=== PATIENT | male | born 1955 | race Caucasian/White ===

== ENCOUNTER 2019-11-18 07:05 | Day surgery (SDC) | payer OTHER ==
[~2019-11-18] VITALS: Ht 188 cm; Wt 123.0 kg
[2019-11-18] MEDS ORDERED: ELIQUIS 5MG PO (07:51)
[2019-11-18] MEDS ORDERED: SYNTHROID0.1 MG/TAB PO (07:51)
[2019-11-18] MEDS ORDERED: LOPRESSOR 550 MG/TAB PO (07:58)
[2019-11-18 08:04] VITALS: BP 124/83; PULSE 89; TEMP 98
[2019-11-18 08:10] LABS: HEMATOCRIT 46.9 % (42.0-52.0); HEMOGLOBIN 15.9 g/dl (13.5-18.0); MEAN CELL VOLUME 98 fl (80.0-100.0); MEAN CORPUSCULAR HEMOGLOBIN 33 pg (27.0-31.0); MEAN CORPUSCULAR HGB CONC 34 g/dl (33.0-37.0); MEAN PLATELET VOLUME 9.3 fl (7.4-10.4); PLATELET COUNT 150 K/mm3 (130-400)
[2019-11-18 08:19] LABS: CALCIUM 9.2 mg/dL (8.4-10.2); CREATININE, serum 0.83 (0.66-1.25); POTASSIUM 4.4 mmol/L (3.4-5.0)
[2019-11-18 08:34] LABS: INR 1.2 (0.8-3.0); PROTHROMBIN TIME 13.9 SECONDS (9.7-12.8)
[2019-11-18 08:37] LABS: PARTIAL THROMBOPLASTIN TIME 37.5 SECONDS (26.0-37.0)
[2019-11-18] MEDS ORDERED: MULTAQ400 MG PO (08:46)
[2019-11-18 09:09] VITALS: BP 94/48; PULSE 54
--- NOTE | 2019-11-18 09:10 | NUR ---
report from Bobbi Thomson.Patient awake and alert, at bedside.
[2019-11-18 09:15] VITALS: BP 93/57; PULSE 52
[2019-11-18 09:30] VITALS: BP 101/69; PULSE 52
[2019-11-18 09:45] VITALS: BP 110/66; PULSE 53
--- NOTE | 2019-11-18 10:23 | NUR ---
Discharge instructions given to pt.Pt verbalizes understanding.INT removed,catheter tip intact.Pt escorted out via wheelchair by robb gibson.
== END 2019-11-18 10:37 | disposition home or self-care (01) ==
LOC: COL.CAR 07:05
PROVIDERS: Internal Medicine Cardiovascular Disease
DX: I48.91 Unspecified atrial fibrillation (principal); F17.290 Nicotine dependence, other tobacco product, uncomplicated; E66.9 Obesity, unspecified; E03.9 Hypothyroidism, unspecified; Z79.01 Long term (current) use of anticoagulants; Z20.828 Contact with and (suspected) exposure to other viral communicable diseases
CPT/HCPCS: J2704; J7120

== ENCOUNTER 2019-11-30 11:13 | Inpatient (IN) | payer OTHER ==
[~2019-11-30] VITALS: Ht 188 cm; Wt 111.2 kg
[~2019-11-30 11:13] MED LIST: ELIQUIS 5MG PO; LOPRESSOR 550 MG/TAB PO; MULTAQ400 MG PO; SYNTHROID0.1 MG/TAB PO
--- NOTE | 2019-12-06 08:47 | NUR ---
Pt up to room 353, oriented to room. Pt is A&O, independent in room, on room air. Breathing is even and unlabored. Pt denies any pain. POC discussed, allergies and meds reviewed. Pt denies needs at this time. Will complete assessment and start IV. Awaiting orders. Will place tele.
[2019-12-06 08:50] LABS: BASO % 0.9 % (0.0-2.0); EOS # 0.1 (0.0-0.7); EOS % 2.3 % (0-4.0); GRAN # 2.6 (1.4-6.5); GRAN % 58.7 % (42.2-75.2); HEMATOCRIT 46.1 % (42.0-52.0); HEMOGLOBIN 15.6 g/dl (13.5-18.0); LYMPH # 1.1 (1.2-3.4); LYMPH % 25.1 % (20.0-51.0); MEAN CELL VOLUME 99 fl (80.0-100.0); MEAN CORPUSCULAR HEMOGLOBIN 33 pg (27.0-31.0); MEAN CORPUSCULAR HGB CONC 34 g/dl (33.0-37.0); MEAN PLATELET VOLUME 9.7 fl (7.4-10.4); MONO # 0.6 (0.1-0.6); MONO % 12.8 % (1.7-9.3); PLATELET COUNT 154 K/mm3 (130-400); RED BLOOD COUNT 4.67 M/mm3 (4.20-5.60); REDCELL DISTRIBUTION WIDTH-CV 11.9 % (11.5-14.5)
[2019-12-06 08:51] VITALS: BP 142/72; PULSE 52; TEMP 97.8
[2019-12-06 09:05] LABS: ALBUMIN 4.2 gm/dL (3.5-5.0); BILIRUBIN,TOTAL 0.6 mg/dL (0.0-1.0); CREATININE, serum 0.86 (0.66-1.25); MAGNESIUM 1.9 mg/dL (1.6-2.3); POTASSIUM 4.3 mmol/L (3.4-5.0)
[2019-12-06 09:10] LABS: INR 1.3 (0.8-3.0); PROTHROMBIN TIME 14.8 SECONDS (9.7-12.8)
[2019-12-06 11:39] VITALS: BP 135/70; PULSE 51; TEMP 97.7
[2019-12-06 16:00] VITALS: BP 137/70; PULSE 45; TEMP 97.9
--- NOTE | 2019-12-06 17:31 | NUR ---
Pt assessment completed and charted. Sotalol started per orders, EKG and labs completed prior. Pt A&O, independent in room, on room air, breathing is even and unlabored, pulses strong bilateral, HRRR at this time, placed on tele. Pt denies chest pain, dizziness, N/V/D, abdominal pain, numbness or tingling, palpitations. LS cta, BS active. Pt ambulatory in halls. Pt denied need for flu vaccine. No other needs expressed.
[2019-12-06 20:00] VITALS: BP 126/62; PULSE 51; TEMP 97.8
--- NOTE | 2019-12-06 21:10 | NUR ---
Initial shift assessment done-denies any chest pain/SOB, states feels fine tonight-- Up walking in the [place], Tele on- ericka at 50/min, given a HS snack- pt very pleasant, no other requests
[2019-12-06 23:37] VITALS: BP 119/57; PULSE 51; TEMP 98.1
[2019-12-07 04:04] VITALS: BP 122/63; PULSE 50; TEMP 97.7
--- NOTE | 2019-12-07 04:35 | NUR ---
Quiet night- has been sleeping- no requests made,, Tele on-SB from 45-55/min
[2019-12-07 07:01] LABS: BASO % 0.8 % (0.0-2.0); EOS # 0.1 (0.0-0.7); EOS % 3.4 % (0-4.0); GRAN # 1.9 (1.4-6.5); GRAN % 50.4 % (42.2-75.2); HEMATOCRIT 47.4 % (42.0-52.0); HEMOGLOBIN 15.7 g/dl (13.5-18.0); LYMPH # 1.2 (1.2-3.4); LYMPH % 31.8 % (20.0-51.0); MEAN CELL VOLUME 99 fl (80.0-100.0); MEAN CORPUSCULAR HEMOGLOBIN 33 pg (27.0-31.0); MEAN CORPUSCULAR HGB CONC 33 g/dl (33.0-37.0); MEAN PLATELET VOLUME 10.2 fl (7.4-10.4); MONO # 0.5 (0.1-0.6); MONO % 13.3 % (1.7-9.3); PLATELET COUNT 164 K/mm3 (130-400); REDCELL DISTRIBUTION WIDTH-CV 11.9 % (11.5-14.5)
[2019-12-07 07:12] LABS: CALCIUM 9.1 mg/dL (8.4-10.2); CREATININE, serum 0.84 (0.66-1.25); MAGNESIUM 1.9 mg/dL (1.6-2.3); POTASSIUM 4.4 mmol/L (3.4-5.0)
[2019-12-07 08:16] VITALS: BP 129/64; PULSE 46; TEMP 98.3
--- NOTE | 2019-12-07 11:36 | NUR ---
Pt assessment completed and charted. Medications administered per mar. Pt A&O, independent in room, on room air, breathing is even and unlabored, denies chest pain, dizziness, N/V/D. Pt has RFA INT IV that flushes w/o difficulty. LS cta, HRRR. No edema noted. BS active. pt ambulating in halls, good appetite. No needs expressed.
--- NOTE | 2019-12-07 11:55 | NUR ---
First visit from the natural resource specialist. No needs right now.
[2019-12-07 12:02] VITALS: BP 130/66; PULSE 46; TEMP 97.6
--- NOTE | 2019-12-07 15:12 | NUR ---
Metal Drill Operator met with patient to discuss discharge planning. Patient lives in [place] with his , Adilene (ph#[phone]) and sees Dr. Apolinar Mensah at [facility] for primary care. Patient obtains medications at [facility] in [place] with no difficulties. Patient does not use any DME and reports independence with ADLS. Patient states he believes he has DPOA-HC completed and thinks he completed it a few years ago. Patient plans to return home upon discharge. SW contacted patient's , Adilene to review discharge plan. Adilene states patient completed DPOA-HC a few years back when he had surgery but that she has no idea where a copy would be located. Adilene has no concerns about patient returning home at discharge. Adilene states she is working remotely at this time and will be home to provide support to patient as needed. TOÑO will continue to follow.
[2019-12-07 16:00] VITALS: BP 140/74; PULSE 47; TEMP 98.1
--- NOTE | 2019-12-07 17:21 | NUR ---
Pt has had uneventful day, sinus ericka on tele and all vitals, asymptomatic, pt has been ambulating halls.
[2019-12-07 20:00] VITALS: BP 116/69; PULSE 49; TEMP 97.5
--- NOTE | 2019-12-07 20:20 | NUR ---
Patient assessed at this time. Alert and oriented x 4, and able to make needs known. Denies having pain and discomfort at this time. Peripheral INT to right forearm flushed. Site is without redness, warmth, swelling, and pain. Denies SOB and dyspnea. LS CTA. Respirations even and unlabored. HRR-sinus ericka on tele. Capillary refill less than 3 seconds. Non-tenting skin turgor. BSAx4. Abdomen soft and non-tender. No edema. Voices no questions, needs, or concerns at this time. Resting in bed with call light within reach.
[2019-12-08] VITALS: BP 118/68; PULSE 73; TEMP 98.1
[2019-12-08 04:00] VITALS: BP 117/62; PULSE 50; TEMP 97.8
--- NOTE | 2019-12-08 05:13 | NUR ---
Patient has been resting in bed. Voices no questions, needs, or concerns at this time. Resting in bed with call light within reach.
[2019-12-08 07:51] VITALS: BP 136/72; PULSE 49; TEMP 97.9
[2019-12-08 07:52] LABS: BASO # 0.1 (0.0-0.2); BASO % 1.1 % (0.0-2.0); EOS # 0.1 (0.0-0.7); EOS % 2.8 % (0-4.0); GRAN # 2.4 (1.4-6.5); GRAN % 54.7 % (42.2-75.2); HEMATOCRIT 48.3 % (42.0-52.0); HEMOGLOBIN 16.2 g/dl (13.5-18.0); LYMPH # 1.2 (1.2-3.4); LYMPH % 26.9 % (20.0-51.0); MEAN CELL VOLUME 99 fl (80.0-100.0); MEAN CORPUSCULAR HEMOGLOBIN 33 pg (27.0-31.0); MEAN CORPUSCULAR HGB CONC 34 g/dl (33.0-37.0); MEAN PLATELET VOLUME 10.1 fl (7.4-10.4); MONO # 0.6 (0.1-0.6); MONO % 14.3 % (1.7-9.3); PLATELET COUNT 158 K/mm3 (130-400); REDCELL DISTRIBUTION WIDTH-CV 11.9 % (11.5-14.5)
--- NOTE | 2019-12-08 08:00 | NUR ---
CALLED JANINE NAVA ON ADMINISTRATION OF SOTALOL WITH LOW HR, SHE SAID SHE WOULD ASK LAURA ABOUT IT AND GET BACK TO ME.
[2019-12-08 08:06] LABS: CALCIUM 9.2 mg/dL (8.4-10.2); CREATININE, serum 0.87 (0.66-1.25); MAGNESIUM 1.9 mg/dL (1.6-2.3); POTASSIUM 4.2 mmol/L (3.4-5.0)
--- NOTE | 2019-12-08 09:21 | NUR ---
EDUCATED PT ON SOTALOL HOLD UNTIL DR. SANCHEZ CONFIRMED TO GIVE, PT C/O OF SLIGHT DIZZINESS WHEN WALKING, HE SAID "IT'S VERY SLIGHT, I CAN FEEL A DIFFERENCE FROM MY NORMAL". GAVE ELIQUIS AND FLUSHED IV. ASSESSMENT PERFORMED, MEDICATIONS GIVEN, NO OTHER NEEDS AT THIS TIME. FILLED PT WATER CUP PER PT REQUEST.
--- NOTE | 2019-12-08 10:32 | NUR ---
JANINE NAVA CONFIRMED FROM DR SANCHEZ THAT SOTALOL DOSE WAS OK TO GIVE.
[2019-12-08] MEDS ORDERED: BETAPACE 80MG80 MG PO (11:47)
--- NOTE | 2019-12-08 13:03 | NUR ---
PT ESCORTED OUT WITH ASIA, TELE DISCONTINUED, IV DC'D, DISCHARGE EDUCATION PROVIDED, NO OTHER NEEDS.
== END 2019-12-08 13:00 | disposition home or self-care (01) | DRG 310 ==
LOC: MEDICAL 12-06 07:58
PROVIDERS: ADMIT Internal Medicine Cardiovascular Disease
DX: I48.0 Paroxysmal atrial fibrillation (principal); Z79.01 Long term (current) use of anticoagulants

== ENCOUNTER 2021-07-31 09:31 | Emergency (ER) | payer OTHER ==
[~2021-07-31] VITALS: Ht 188 cm; Wt 118.6 kg
[~2021-07-31 09:31] MED LIST changes: +BETAPACE 80MG80 MG PO
[2021-07-31 09:38] VITALS: TEMP 97.9
[2021-07-31 10:11] LABS: BASO % 0.8 % (0.0-2.0); EOS # 0.1 K/mm3 (0.0-0.7); EOS % 1.3 % (0.0-4.0); GRAN # 3.1 K/mm3 (1.4-6.5); GRAN % 64.9 % (42.2-75.2); HEMATOCRIT 45.3 % (42.0-52.0); HEMOGLOBIN 15.6 g/dl (13.5-18.0); LYMPH % 20.4 % (20.0-51.0); MEAN CELL VOLUME 97 fl (80.0-100.0); MEAN CORPUSCULAR HEMOGLOBIN 34 pg (27-31); MEAN CORPUSCULAR HGB CONC 34 g/dl (33.0-37.0); MEAN PLATELET VOLUME 9.3 fl (7.4-10.4); MONO # 0.6 K/mm3 (0.1-0.6); MONO % 12.4 % (1.7-9.3); PLATELET COUNT 167 K/mm3 (130-400); RED BLOOD COUNT 4.66 M/mm3 (4.20-5.60); REDCELL DISTRIBUTION WIDTH-CV 11.7 % (11.5-14.5)
[2021-07-31] MEDS ORDERED: TOPROL XL 50MG50 MG PO (10:12)
[2021-07-31 10:25] LABS: ALANINE AMINOTRANSFERASE 19 U/L (0-55); ALBUMIN 3.7 gm/dL (3.4-4.8); ALKALINE PHOSPHATASE 63 U/L (40-150); ANION GAP 10 mmol/L (7-16); AST,SGOT 15 U/L (5-34); BILIRUBIN,TOTAL 0.6 mg/dL (0.2-1.2); BLOOD UREA NITROGEN 23 mg/dL (8-26); CALCIUM 9.2 mg/dL (8.4-10.2); CARBON DIOXIDE 24 mmol/L (23-31); CHLORIDE 108 mmol/L (98-107); CREATININE, serum 0.85 mg/dL (0.72-1.25); GLUCOSE 96 mg/dL (70-99); POTASSIUM 4.2 mmol/L (3.5-4.5); SODIUM 142 mmol/L (136-145); TOTAL PROTEIN 6.8 gm/dL (6.2-8.1)
[2021-07-31 10:30] LABS: INR 1.5 (0.8-3.0); PROTHROMBIN TIME 17.4 SECONDS (9.7-12.8)
[2021-07-31 10:33] LABS: PARTIAL THROMBOPLASTIN TIME 42.7 SECONDS (26.0-37.0)
[2021-07-31 10:34] LABS: TROPONIN-I < 0.010 ng/mL (0.00-0.033)
[2021-07-31 11:29] VITALS: BP 107/67; PULSE 60
== END 2021-07-31 11:29 | disposition home or self-care (01) ==
LOC: COL.ER 09:31
PROVIDERS: Emergency Medicine
DX: I48.91 Unspecified atrial fibrillation (principal); Z79.01 Long term (current) use of anticoagulants; Z79.899 Other long term (current) drug therapy; Z86.79 Personal history of other diseases of the circulatory system; Z28.310 Unvaccinated for COVID-19
CPT/HCPCS: J2704; J7030